=== PATIENT | female | born 1930 | race Caucasian/White ===

== ENCOUNTER → 2016-08-08 | Day surgery (SDC) | payer MEDICARE, BC ==
[~2016-08-08] MED LIST: Lactated Ringers 1,000 ML IV SCH; Propofol 200 MG/20 ML SDV IV ONE
[2016-08-08 09:43] VITALS: BP 165/68
--- NOTE | 2016-08-08 12:52 | OR ---
DATE OF OPERATION: 08/08/2016 PREOPERATIVE DIAGNOSIS: 1. GASTROESOPHAGEAL REFLUX DISEASE. 2. ALTERED BOWEL HABITS. POSTOPERATIVE DIAGNOSIS: 1. GASTROESOPHAGEAL REFLUX DISEASE. 2. ALTERED BOWEL HABITS. SURGEON: Ariel Lee MD PROCEDURE: 1. EGD. 2. FULL-LENGTH COLONOSCOPY. 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 COMPLICATIONS: None. SPECIMEN: None. FINDINGS: 1. Essentially normal EGD with minimal hiatal hernia. No reflux esophagitis, stricturing, ulceration, or Aguirre's changes seen. 2. Full-length colonoscopy. 3. Minimal residual left-sided diverticulosis, status post partial colectomy. RECOMMENDATIONS: Medical follow up with Dr. Miguel. INDICATIONS: The patient presented with complaints of some occasional reflux and altered bowel habits. Dr. Miguel sent for EGD and colonoscopy. She has had a prior partial colectomy for diverticular disease. PROCEDURE: THE PATIENT WAS PREPPED AND DRAPED, PLACED IN THE LEFT LATERAL DECUBITUS POSITION. A LUBRICATED OLYMPUS GASTROSCOPE WAS INSERTED OVER A BIT ADVANCED TO CRICOPHARYNGEUS AREA AND EASILY INTUBATED IN THE ESOPHAGUS. THE ESOPHAGEAL LINING WAS BENIGN IN ITS ENTIRE COURSE. THE Z-LINE WAS CRISP AND SHARP AT 36 CM. THERE WAS NO SPONTANEOUS REFLUX SEEN. NO DISTAL ESOPHAGITIS, STRICTURING, ULCERATION, OR AGUIRRE'S CHANGES. THERE MAY HAVE BEEN A VERY MINIMAL HIATAL HERNIA PRESENT, BUT NOT SIGNIFICANT. THE SCOPE WAS INTUBATED INTO THE STOMACH THROUGH THE PYLORUS INTO THE THIRD PORTION OF THE DUODENUM. THE SECOND AND THIRD PORTION OF THE DUODENUM ALONG WITH THE DUODENAL BULB WERE BENIGN. THE SCOPE WAS BROUGHT BACK INTO THE STOMACH AND RETROFLEXED. THE UPPER FUNDUS AND CARDIA WERE COMPLETELY UNREMARKABLE. STRAIGHTENING SHOWED NO SIGNS OF ANY PEPTIC ULCER DISEASE, POLYP, MASS, ULCERATION, BLEEDING SITES, OR OTHERWISE. AIR WAS THEN SUCTIONED FROM THE STOMACH, AND THE SCOPE REMOVED WITHOUT COMPLICATION. A LUBRICATED OLYMPUS COLONOSCOPE WAS THEN INSERTED AND SAFELY AND EASILY ADVANCED TO THE CECUM. DIRECT VISUALIZATION OF THE ILEOCECAL VALVE AND APPENDICEAL STUMP WAS SEEN. THE BOWEL PREP WAS EXCELLENT. UPON WITHDRAWAL OF THE SCOPE, THE ENTIRE COLON SHOWED NO SIGNS OF ANY POLYPS, MASS, ULCERATION, OR BLEEDING SITES. THERE WERE NO VASCULAR ABNORMALITIES OR SIGNS OF COLITIS. THE FEW REMAINING DIVERTICULA WERE SEEN IN THE LEFT COLON, BUT VERY MINIMAL IN SEVERITY. NO ACUTE INFLAMMATORY CHANGES SEEN. THE RECTAL VAULT APPEARED BENIGN. THE VAULT WAS TOO SHALLOW TO RETROFLEX SAFELY, BUT UPON DIRECT WITHDRAWAL, NO OBVIOUS PERIANAL LESIONS WERE SEEN. AIR WAS SUCTIONED BEST POSSIBLE. THE SCOPE THEN REMOVED WITHOUT COMPLICATION. DENA/AJ /[id number]
== END ==
LOC: CC.SDS 08:03
PROVIDERS: ATTEND Family Medicine
DX: K21.9 Gastro-esophageal reflux disease without esophagitis (principal); K44.9 Diaphragmatic hernia without obstruction or gangrene; K57.30 Diverticulosis of large intestine without perforation or abscess without bleeding; I10 Essential (primary) hypertension; R19.7 Diarrhea, unspecified; R19.4 Change in bowel habit; Z90.49 Acquired absence of other specified parts of digestive tract; Z79.82 Long term (current) use of aspirin; Z79.899 Other long term (current) drug therapy
CPT/HCPCS: 00810; 43235; 45378; J2704; J7120